=== PATIENT | male | born 1965 | race Caucasian/White ===

== ENCOUNTER 2016-12-25 23:41 | Emergency (ER) | payer OTHER ==
[~2016-12-25] VITALS: Ht 182.9 cm; Wt 109.3 kg
[2016-12-25 23:53] VITALS: BP 143/81
== END 2016-12-26 00:24 | disposition home or self-care (01) ==
LOC: ER 23:41
DX: K14.9 Disease of tongue, unspecified (principal); Z88.0 Allergy status to penicillin
CPT/HCPCS: 99281; A4606; Z7610; Z7502

== ENCOUNTER 2017-02-15 21:58 | Emergency (ER) | payer OTHER ==
[~2017-02-15] VITALS: Ht 182.9 cm; Wt 111.1 kg
[2017-02-15 22:00] VITALS: BP 140/91
--- NOTE | 2017-02-16 00:12 | NUR ---
CALLED PT X3. PT NOT IN WAITING ROOM.
--- NOTE | 2017-02-16 00:47 | NUR ---
CALLED PT X 3. PT NOT IN WAITING ROOM.
== END 2017-02-16 00:53 | disposition left against medical advice (07) ==
LOC: ER 22:00
DX: Z53.21 Procedure and treatment not carried out due to patient leaving prior to being seen by health care provider (principal)
CPT/HCPCS: A4606; Z7610

== ENCOUNTER 2017-02-16 04:58 | Emergency (ER) | payer OTHER ==
[~2017-02-16] VITALS: Ht 182.9 cm; Wt 111.1 kg
[2017-02-16 05:00] VITALS: BP 161/80
== END 2017-02-16 05:58 | disposition home or self-care (01) ==
LOC: ER 05:09
DX: S02.2XXA Fracture of nasal bones, initial encounter for closed fracture (principal); F41.9 Anxiety disorder, unspecified; I10 Essential (primary) hypertension; Z88.0 Allergy status to penicillin; Y04.2XXA Assault by strike against or bumped into by another person, initial encounter; Y93.89 Activity, other specified; Y92.89 Other specified places as the place of occurrence of the external cause; Y99.9 Unspecified external cause status
CPT/HCPCS: 70486; 99284; A4606; Z7610